=== PATIENT | female | born 1970 | race African-American/Black ===

== ENCOUNTER 2018-11-25 15:02 | Emergency (ER) | payer OTHER ==
[2018-11-25] MEDS: HYDROCODONE/APAP (5/325) TAB PO (16:22)
[2018-11-25] MEDS: KETOROLAC 60 MG INJ IM (16:22)
== END 2018-11-25 19:55 | disposition home or self-care (01) ==
LOC: FTE 15:02
DX: S42.402A Unspecified fracture of lower end of left humerus, initial encounter for closed fracture (principal); S62.111A Displaced fracture of triquetrum [cuneiform] bone, right wrist, initial encounter for closed fracture; W18.42XA Slipping, tripping and stumbling without falling due to stepping into hole or opening, initial encounter; Y92.9 Unspecified place or not applicable
CPT/HCPCS: 29105; 73030; 73080-LT; 73110-LT; 73110-RT; 73562; 81025; 96372; 99284-25